=== PATIENT | female | born 1935 | race Caucasian/White ===

== ENCOUNTER 2016-10-07 13:54 | Observation (INO) | payer MEDICARE, OTHER ==
[~2016-10-07 13:54] MED LIST: ADULT ASPIRIN81 MG; ADULT ASPIRIN81 MG PO; ADVIL200 M1 PO; AMBIEN10 MG PO; ASPIR 8181 MG PO; ATENOLOL100 MG; ATIVAN0.5 MG PO; BACTRIM DS1 TAB PO; CALCIUM + D T1 UDTAB; CALCIUM + D T1 UDTAB PO; CALCIUM +D & M1 EAC1 PO; CALTRATE 600+D1 EAC1 PO; CELEXA20 M1 PO; CIPRO500 MG PO; COUMADIN2.5 MG; COUMADIN5 M1 PO; COUMADIN5 MG; DARVOCET; DIFLUCAN100 MG PO; HYZAAR 100-25 T1 TAB; HYZAAR 100-251 TAB PO; IMIPRAMINE HCL10 MG; K-DUR20 ME2 PO; LEVAQUIN500 MG PO; LEXAPRO20 MG PO; LOSARTAN-HCTZ1 EAC1 PO; MACROBID 100 M100 MG PO; MIRALAX12 EA; MOBIC7.5 MG; NORCO 5/325 TAB1 TAB PO; NORCO 5/3251 TA1 NG; OXYCODONE/APAP; PACERONE200 MG PO; PRILOSEC OTC20 MG PO; PRILOSEC20 MG; PRILOSEC20 MG PO; TUMS300 MG PO; ULTRAM50 MG PO; VANTIN PO; ZITHROMAX250 M1 PO; ZITHROMAX500 M2 PO; ZOFRAN4 MG PO; ZOFRAN8 MG PO; [UNRECOGNIZED DRUG - OTHER] PO
[2016-10-07] MEDS ORDERED: COUMADIN6 M1 PO (14:15)
[2016-10-07] MEDS ORDERED: ASPIR 8181 M1 PO (14:15)
[2016-10-07] MEDS ORDERED: DUTOPROL 100-11 EACH PO (14:16)
[2016-10-07 14:42] LABS: BASO % 0.4 % (0-2); EOS % 1.1 % (0-7); EOSINOPHIL ABSOLUTE COUNT 0.1 tho/cmm (0.0-0.7); HCT-HEMATOCRIT 41.6 % (34.0-49.0); HGB-HEMOGLOBIN 13.9 gm/dl (12.0-15.5); IMMATURE GRANULOCYTES ABSOLUTE 0.01 tho/cmm (0-0.03); IMMATURE GRANULOCYTES PERCENT 0.1 % (0-0.3); LYMPH % 18.7 % (20-45); LYMPH ABSOLUTE COUNT 1.6 tho/cmm (0.8-4.5); MCH (MEAN CORPUSCULAR HGB) 28.7 pg (28.0-32.0); MCHC MEAN CORPUSCULAR HGB CONC 33.4 % (32.0-36.0); MEAN PLATELET VOLUME 11.3 cmc (9.4-12.4); MONO % 9.4 % (0-12); MONOCYTE ABSOLUTE COUNT 0.8 tho/cmm (0.0-1.2); NEUTROPHILS % 70.3 % (40-80); PLATELET COUNT 178 tho/cmm (150-450); RED BLOOD COUNT 4.84 mil/cmm (4.00-5.20); WHITE BLOOD COUNT 8.5 tho/cmm (4.0-10.0)
[2016-10-07 14:46] LABS: INR 3.1 INR (0.9-1.1); PROTHROMBIN TIME 37.2 SECONDS (9.0-13.6)
[2016-10-07 14:57] LABS: ANION GAP 12 mmol/L (0-20); BLOOD UREA NITROGEN 26 mg/dl (6-24); CALCIUM 9.2 mg/dl (8.5-10.5); CARBON DIOXIDE-VENOUS 28 mmol/L (22-32); CHLORIDE 103 mmol/l (96-110); CREATININE 1.13 mg/dl (0.50-1.10); GLUCOSE 140 mg/dL (70-110); POTASSIUM 3.5 mmol/L (3.7-5.1); SODIUM 139 mmol/L (135-145); eGFR VALUE FOR BLACK 53 mL/Min
[2016-10-08 06:50] LABS: INR 3.3 INR (0.9-1.1); PROTHROMBIN TIME 39.6 SECONDS (9.0-13.6)
[2016-10-08 06:57] LABS: ANION GAP 10 mmol/L (0-20); BLOOD UREA NITROGEN 21 mg/dl (6-24); CALCIUM 8.4 mg/dl (8.5-10.5); CARBON DIOXIDE-VENOUS 28 mmol/L (22-32); CHLORIDE 105 mmol/l (96-110); CREATININE 0.84 mg/dl (0.50-1.10); GLUCOSE 99 mg/dL (70-110); POTASSIUM 4.2 mmol/L (3.7-5.1); SODIUM 139 mmol/L (135-145); eGFR VALUE FOR BLACK 76 mL/Min
[2016-10-08] MEDS ORDERED: CYCLOBENZAPRINE5 M1 PO (11:36)
[2016-10-08] MEDS ORDERED: NORCO 5-325 TA1 EACH PO (11:39)
== END 2016-10-08 13:22 ==
LOC: EDMED 13:54 → EMR2 18:01 → 5EB 22:10
PROVIDERS: Emergency Medicine; Internal Medicine; ADMIT Hospitalist
DX: M62.838 Other muscle spasm (principal); E87.6 Hypokalemia; R00.0 Tachycardia, unspecified; I10 Essential (primary) hypertension; I82.403 Acute embolism and thrombosis of unspecified deep veins of lower extremity, bilateral; M19.90 Unspecified osteoarthritis, unspecified site; K21.9 Gastro-esophageal reflux disease without esophagitis; J98.11 Atelectasis; Z87.19 Personal history of other diseases of the digestive system; Z90.49 Acquired absence of other specified parts of digestive tract; Z79.82 Long term (current) use of aspirin; Z79.01 Long term (current) use of anticoagulants; Z88.8 Allergy status to other drugs, medicaments and biological substances
CPT/HCPCS: G0378; G8978-GP-CJ; G8979-GP-CI; G8980-GP-CJ; G8987-GO-CJ; G8988-GO-CI; G8989-GO-CJ; J1170; J2060; J7030